=== PATIENT | female | born 1955 | race Hispanic/Latino ===

== ENCOUNTER → 2022-05-17 | Outpatient (CLI) | payer MEDICARE | LOC: MRI 12:42 | PROVIDERS: ATTEND Family Medicine | DX: M75.122 Complete rotator cuff tear or rupture of left shoulder, not specified as traumatic (principal) ==

== ENCOUNTER 2022-06-20 09:54 | Outpatient (RCR) | payer MEDICARE | END 2022-06-26 | LOC: PT 09:54 | PROVIDERS: ATTEND Orthopaedic Surgery | DX: M75.02 Adhesive capsulitis of left shoulder (principal); M25.512 Pain in left shoulder; M25.612 Stiffness of left shoulder, not elsewhere classified; M62.81 Muscle weakness (generalized) ==

== ENCOUNTER 2022-07-13 09:58 | Outpatient (RCR) | payer MEDICARE | END 2022-07-26 | LOC: PT 09:58 | PROVIDERS: ATTEND Orthopaedic Surgery | DX: M25.512 Pain in left shoulder (principal); M62.81 Muscle weakness (generalized); M75.02 Adhesive capsulitis of left shoulder; M25.612 Stiffness of left shoulder, not elsewhere classified ==

== ENCOUNTER 2022-09-25 10:57 | Outpatient (RCR) | payer MEDICARE | END 2022-09-26 | LOC: PT 10:57 | PROVIDERS: ATTEND Orthopaedic Surgery | DX: M75.02 Adhesive capsulitis of left shoulder (principal); M62.81 Muscle weakness (generalized); M25.512 Pain in left shoulder ==

== ENCOUNTER 2022-09-28 07:26 | Outpatient (RCR) | payer MEDICARE | END 2022-10-24 | LOC: PT 07:26 | PROVIDERS: ATTEND Orthopaedic Surgery | DX: M75.02 Adhesive capsulitis of left shoulder (principal); M62.81 Muscle weakness (generalized); M25.512 Pain in left shoulder ==

== ENCOUNTER 2022-10-09 12:11 | Emergency (ER) | payer OTHER ==
[~2022-10-09] VITALS: Ht 154.9 cm; Wt 75.7 kg
[2022-10-09] MEDS ORDERED: ACETAMINOPHEN 325 MG TAB PO ONE (12:45)
== END 2022-10-09 14:16 | disposition home or self-care (01) ==
LOC: ER 12:22
DX: S63.591A Other specified sprain of right wrist, initial encounter (principal); W07.XXXA Fall from chair, initial encounter; Y92.89 Other specified places as the place of occurrence of the external cause; Z94.4 Liver transplant status
CPT/HCPCS: 99283

== ENCOUNTER 2025-02-23 10:37 | Emergency (ER) | payer MEDICARE, OTHER ==
[~2025-02-23] VITALS: Ht 154.9 cm; Wt 75.7 kg
[2025-02-23 10:38] VITALS: PULSE 85; RESP 16; TEMP 98.6; O2SAT 98
[2025-02-23] MEDS ORDERED: TACROLIMUS1 MG PO (10:55)
[2025-02-23] MEDS ORDERED: MAG-OXIDE400 MG PO (10:55)
[2025-02-23] MEDS ORDERED: ROSUVASTATIN CAL5 MG PO (10:55)
[2025-02-23] MEDS ORDERED: CEPHALEXIN500 MG PO (10:55)
[2025-02-23] MEDS ORDERED: OYSCO 500+D TA1 EACH PO (10:55)
[2025-02-23] MEDS ORDERED: ULTRAM 50MG50 MG PO (11:24)
== END 2025-02-23 11:30 | disposition home or self-care (01) ==
LOC: ER 10:58
DX: R68.84 Jaw pain (principal); K08.89 Other specified disorders of teeth and supporting structures; Z94.4 Liver transplant status
CPT/HCPCS: 99282